=== PATIENT | female | born 1995 | race African-American/Black ===

== ENCOUNTER → 2017-06-18 | Outpatient (CLI) | payer OTHER ==
--- NOTE | 2017-06-18 13:17 | REP ---
First trimester obstetric ultrasound, stat request: The study is performed with transabdominal and endovaginal imaging. The bladder is incompletely distended. On the endovaginal images the uterus is anteverted. The fundus is slightly retroflexed. There is an intrauterine gestational sac, however there is no identifiable pole. However, there is a normal size intrauterine gestational sac measuring 5 mm diameter. There is question of a left ovarian cyst measuring up to 2.5 cm in diameter, compatible with corpus luteum. The ovaries are normal size. Right ovary measures 2.2 by 1.5 x 2 x 1 cm. Left ovary measures 2.4 x 128 x 2.7 cm. There is no free fluid in the pelvis. Study is technically difficult because of interfering bowel gas. Doppler assessment of the ovaries could not be performed because of interfering bowel gas. Impression: There is an intrauterine gestational sac. I suspect there is an intrauterine yolk sac, however there is no identifiable pole. Therefore, at this time, the findings could represent an intrauterine gestation not yet visible ultrasonographically, however, spontaneous and / or ectopic are not entirely excluded. Follow-up is recommended. Signed by Alton Rivera MD 06/18/2017 01:09 P
== END ==
LOC: M RAD 12:20
PROVIDERS: ATTEND Student in an Organized Health Care Education/Training Program
DX: Z36 Encounter for antenatal screening of mother (principal)